=== PATIENT | female | born 1990 | race Two or more races ===

== ENCOUNTER 2020-08-27 06:30 | Day surgery (SDC) | payer OTHER | END 2020-08-27 14:21 | disposition home or self-care (01) | LOC: AMB-ENDOS 06:30 | PROVIDERS: ATTEND Surgery | DX: D13.1 Benign neoplasm of stomach (principal); Z20.828 Contact with and (suspected) exposure to other viral communicable diseases; Z12.11 Encounter for screening for malignant neoplasm of colon; K44.9 Diaphragmatic hernia without obstruction or gangrene ==

== ENCOUNTER 2023-01-31 20:35 | Emergency (ER) | payer OTHER ==
[~2023-01-31] VITALS: Ht 175.3 cm; Wt 79.4 kg
== END 2023-02-01 04:26 | disposition home or self-care (01) ==
LOC: ER 20:35
DX: M54.50 Low back pain, unspecified (principal)